=== PATIENT | female | born 1950 ===

== ENCOUNTER 2022-01-17 19:30 | Outpatient (CLI) | payer OTHER | END 2022-01-17 19:31 | disposition home or self-care (01) | LOC: SLEEPLAB 19:30 | PROVIDERS: ATTEND Internal Medicine Pulmonary Disease | DX: G47.33 Obstructive sleep apnea (adult) (pediatric) (principal); R51.9 Headache, unspecified; R06.83 Snoring; R53.83 Other fatigue; G47.31 Primary central sleep apnea; G47.10 Hypersomnia, unspecified; G47.00 Insomnia, unspecified; J45.909 Unspecified asthma, uncomplicated; I10 Essential (primary) hypertension | CPT/HCPCS: 95810 ==